=== PATIENT | male | born 1970 | race African-American/Black ===

== ENCOUNTER 2022-08-31 12:21 | Outpatient (REF) | payer OTHER, SELFPAY ==
--- NOTE | ~2022-08-31 | XR_ITS ---
EXAMINATION: XR KNEE, BILATERAL XR KNEE, RIGHT CLINICAL INFORMATION: Pain COMPARISON: 12/01/2016 TECHNIQUE: AP standing view of both knees. Lateral and sunrise views of the right knee. FINDINGS: Right knee: No acute fracture or subluxation. Mild medial compartment narrowing which has progressed from 2017. Small marginal osteophytes at the patellofemoral compartment. Moderate to large joint effusion noted. Left knee: No acute fracture noted. Mild medial compartment joint space narrowing with small marginal osteophytes. XR/XR knee RT 2V IMPRESSION: 1. Moderate to large right knee joint effusion. Mild degenerative changes of the patellofemoral compartment. 2. Mild degenerative changes of the medial compartment of the left knee.
--- NOTE | ~2022-08-31 | XR_ITS ---
EXAMINATION: XR KNEE, BILATERAL XR KNEE, RIGHT CLINICAL INFORMATION: Pain COMPARISON: 12/01/2016 TECHNIQUE: AP standing view of both knees. Lateral and sunrise views of the right knee. FINDINGS: Right knee: No acute fracture or subluxation. Mild medial compartment narrowing which has progressed from 2017. Small marginal osteophytes at the patellofemoral compartment. Moderate to large joint effusion noted. Left knee: No acute fracture noted. Mild medial compartment joint space narrowing with small marginal osteophytes. XR/XR knee standing BI IMPRESSION: 1. Moderate to large right knee joint effusion. Mild degenerative changes of the patellofemoral compartment. 2. Mild degenerative changes of the medial compartment of the left knee.
== END 2022-08-31 12:22 | disposition home or self-care (01) ==
LOC: HO.HOSX 12:21
PROVIDERS: Visit Provider Orthopaedic Surgery
DX: M17.11 Unilateral primary osteoarthritis, right knee (principal)
CPT/HCPCS: 73560; 73565; 99202

== ENCOUNTER 2022-09-10 18:03 | Outpatient (REF) | payer OTHER, SELFPAY ==
--- NOTE | ~2022-09-10 | MR_ITS ---
EXAMINATION: MR KNEE WITHOUT CONTRAST, RIGHT CLINICAL INFORMATION: Effusion, right knee. COMPARISON: None. TECHNIQUE: MRI of the knee without contrast was performed using routine sequences on a high-field scanner. FINDINGS: MENISCI: MEDIAL MENISCUS: There is a complex tear of the posterior horn and body with significant loss of meniscal tissue. In the absence of a history of prior partial meniscectomy, this is likely due to meniscal flap formation and detachment. A horizontal undersurface component to the tear is evident at the posterior horn. Remaining tissue at the meniscal body is partially extruded. A small 7 mm flap fragment is evident at the anterior margin of the posterior horn. LATERAL MENISCUS: Intact LIGAMENTS: CRUCIATE: Intact COLLATERAL: The MCL is thickened proximally, possibly due to an old sprain. No acute tears. LCL complex is intact. EXTENSOR MECHANISM: Quadriceps and patellar tendons are intact. There is edema signal in the superolateral aspect of Hoffa's fat pad. ARTICULAR CARTILAGE/BONE: PATELLOFEMORAL COMPARTMENT: There is mild chondral surface irregularity at the medial and lateral patellar facets with minimal chondral thinning. Additional chondral thinning is present at the central trochlea with small marginal osteophytes. MEDIAL COMPARTMENT: [id number] nonuniform chondral thinning is evident at the medial femoral condyle and, to a lesser extent, at the medial tibial plateau. Small marginal osteophytes. LATERAL COMPARTMENT: Minimal chondral thinning along the lateral tibial plateau posteriorly. JOINT FLUID AND BURSAE: Moderate-sized joint effusion. Trace Farfan's cyst. No appreciable loose bodies. MR/MR knee RT wo con IMPRESSION: 1. Complex tear of the posterior horn and body of the medial meniscus with significant loss of meniscal tissue. 2. Mild medial and patellofemoral compartment osteoarthritis. 3. Moderate-sized joint effusion and trace Farfan's cyst.
== END 2022-09-10 18:04 | disposition home or self-care (01) ==
LOC: HO.MRI 18:03
PROVIDERS: Visit Provider Orthopaedic Surgery
DX: M25.461 Effusion, right knee (principal)
CPT/HCPCS: 73721

== ENCOUNTER → 2022-09-24 14:09 | Outpatient (BNVA) | payer OTHER, SELFPAY | PROVIDERS: PCP Internal Medicine; Visit Provider Orthopaedic Surgery | DX: M17.11 Unilateral primary osteoarthritis, right knee (principal); S83.241A Other tear of medial meniscus, current injury, right knee, initial encounter | CPT/HCPCS: 99212 ==